=== PATIENT | male | born 1995 | race Two or more races ===

== ENCOUNTER 2018-12-01 10:27 | Emergency (ER) | payer BC ==
[~2018-12-01] VITALS: Ht 182.9 cm; Wt 48.1 kg
[2018-12-01] MEDS ORDERED: cefTRIAXone SOD 1,000 MG VL IM ONE (11:00)
[2018-12-01] MEDS ORDERED: KETOROLAC TROMETH 60MG/2ML VIAL IM ONE (11:00)
[2018-12-01] MEDS ORDERED: LIDOCAINE W/ EPINEPHRINE 1 % INJ 30ML ONE (11:15)
[2018-12-01] MEDS ORDERED: ACETAMINOPHEN 500 MG TAB PO ONE (11:45)
[2018-12-01] MEDS ORDERED: SODIUM CHLORIDE 0.9% 1,000 ML IV ONE (12:00)
[2018-12-01 12:53] LABS: Basophils # (auto) 0 uL; Eosinophils # (auto) 0 uL; Hematocrit 42.2 % (41.0-53.0); Hemoglobin 14.5 g/dL (13.5-17.5); Lymphocytes # (auto) 0.6 uL; Lymphocytes % (auto) 10.2 % (10.0-50.0); Mean Corpuscular Hemoglobin 29.9 pg (28.0-32.0); Mean Corpuscular Hgb Conc. 34.4 g/dL (32.0-36.0); Mean Corpuscular Volume 87.1 fL (80.0-100.0); Monocytes # (auto) 0.8 uL; Monocytes % (auto) 14.9 % (0.0-12.0); Neutrophils # (auto) 4.1 uL; Neutrophils % (auto) 74.9 % (37.0-80.0); Nucleated Red Blood Cells % 0.1 %; Platelet Count (auto) 220 10^3/uL (140-450); Red Blood Cells 4.85 10^6/uL (4.5-5.90); Red Cell Distribution Width 12.3 % (11.8-14.3); White Blood Cell 5.5 10^3/uL (4.4-10.8)
[2018-12-01] MEDS ORDERED: cefTRIAXone 1GM/50ML D5W 50 ML IV ONE ×2 (12:55→13:00)
[2018-12-01 13:04] LABS: BUN/Creatinine Ratio 10.4; Calcium 8.4 mg/dL (8.5-10.1); Potassium 3.3 mmol/L (3.5-5.1)
[2018-12-01 13:24] VITALS: BP 98/46
== END 2018-12-01 13:31 | disposition home or self-care (01) ==
LOC: ER 10:27
DX: J20.9 Acute bronchitis, unspecified (principal); J02.9 Acute pharyngitis, unspecified; E86.0 Dehydration
CPT/HCPCS: 36415; 71046; 80048; 85025; 96361; 96365; 96375; 99284; J0696; J1885; J2001; J7030